=== PATIENT | female | born 1965 | race African-American/Black ===

== ENCOUNTER 2019-05-22 09:06 | Inpatient (IN) | payer BC ==
[2019-05-22] MEDS ORDERED: SODIUM CHLORIDE 0.9% P/F 10 ML VIAL IJ ONE (09:43)
[2019-05-22] MEDS ORDERED: BUPIVACAINE LIPOSOME/PF (EXPAREL) 266 MG/20 ML VIAL ONE (09:43)
[2019-05-22] MEDS ORDERED: MIDAZOLAM HCL 2 MG/2 ML SINGLE DOSE VIAL ONE ×5 (09:43→13:42)
[2019-05-22] MEDS ORDERED: CEFAZOLIN 2 GM in DEXTROSE 5%-WATER - 100 ML IVPB ONE (10:30)
[2019-05-22] MEDS ORDERED: ceFAZolin SODIUM 1 GM VIAL ONE ×2 (11:20→14:00)
[2019-05-22] MEDS ORDERED: TRANEXAMIC ACID 1000 MG/10 ML VIAL ONE (11:20)
[2019-05-22] MEDS ORDERED: ePHEDrine SULFATE 50 MG/1 ML AMPULE ONE (11:24)
[2019-05-22] MEDS ORDERED: VANCOMYCIN 1,000 MG VIAL (RESTRICTED TO ID ONLY) ONE (11:39)
[2019-05-22] MEDS ORDERED: oxyCODONE HCL 5 MG TABLET PO PRN (11:56)
[2019-05-22] MEDS ORDERED: ONDANSETRON 4 MG/2 ML VIAL IVPUSH PRN ×2 (11:56→13:39)
[2019-05-22] MEDS ORDERED: LACTATED RINGERS SOLUTION 1,000 ML IV SCH ×2 (12:00→13:45)
[2019-05-22] MEDS ORDERED: BENZOIN/ALOE VERA/STORAX/TOLU 58 ML BOTTLE ONE (13:17)
[2019-05-22] MEDS ORDERED: MAGNESIUM HYDROX 2400MG/30ML ORAL SUSPENSION 30 ML CUP PO PRN (13:39)
[2019-05-22] MEDS ORDERED: MAG HYDROX/AL HYDROX/SIMETH 30 ML UNIT-DOSE CUP PO PRN (13:39)
[2019-05-22] MEDS ORDERED: PATIENT'S OWN MEDICATION (NON-FORMULARY) (Omeprazole [Omeprazole] 20 MG) PO SCH (13:45)
--- NOTE | 2019-05-22 14:28 | PN ---
Progress Note (short form) - Note Progress Note: 53F s/p LEFT total knee replacement POD #0. -Pain control: per anaesthesia team. -DVT PPx: -Chemical: ASA 81mg PO BID x 6 weeks. -Mechanical: EDWINA's, SCD's. -Incentive spirometry q15 min. -PT/OT/Rehab, OOB. -WBAT LLE. -Post-op Ancef x 3 doses. -f/u post-op TOV: 8 hours max. -f/u AM labs. -f/u drain output. -Diet as tolerated. -Care per medical hospitalist team. -Discharge planning: f/u [facility] [place] [facility] 7-10 days; call for appointment . -Will follow. Avelino Willard MD (Orthopaedic Surgery).
--- NOTE | 2019-05-22 14:32 | OP ---
Operative Note - Note: Operative Date: 05/22/19 Pre-Operative Diagnosis: Left knee DJD Operation: Left total knee replacement Findings: Tri-Compartment Osteoarthritis Tourniqet Pressure: 350mmHg Tourniquet Time: 128 minutes Implants: [employer]user Triathlon. Femur - 4. Tibia - 5. Poly - 9mm, PS. Patella - 27mm, symmetric Post-Operative Diagnosis: Same as Pre-op Surgeon: Avelino Willard Gambling Cashier: Cali Willard Anesthesiologist/RESIDENTIAL SUBSTANCE ABUSE COUNSELOR: Alee Link Anesthesia: General Estimated Blood Loss (mls): 0 Drains & Tubes with Location: 1 x deep HemoVac Fluid Volume Replaced (mls): 1,200 (Crystalloid) Operative Report Dictated: Yes
[2019-05-22] MEDS ORDERED: ACETAMINOPHEN 325 MG TABLET (FP) ONE (14:38)
[2019-05-22] MEDS: ACETAMINOPHEN 325 MG TABLET (FP) PO SCH ×2 (14:45→21:40)
--- NOTE | 2019-05-22 19:24 | HP ---
HISTORY OF PRESENT ILLNESS: 53 year-old female with a PMH significant for HTN, GERD, and DJD s/p left total knee replacement with Dr. Cali Willard on 05/22/19. PAST MEDICAL HISTORY: Hypertension GERD PAST SURGICAL HISTORY: Left breast biopsy Salpingectomy s/p ectopic Bilateral knee arthroscopy (2015) Social History: Smoking: never Alcohol: social Drugs: no Allergies No Known Allergies Allergy (Verified 05/13/19 11:42) HOME MEDICATIONS: Home Medications Medication Instructions Recorded Losartan/Hydrochlorothiazide 1 each PO DAILY 05/13/19 [Hyzaar 100-25 Tablet] Naproxen Sodium [Aleve] 220 mg PO PRN 05/13/19 Omeprazole 20 mg PO PRN 05/13/19 REVIEW OF SYSTEMS CONSTITUTIONAL: Absent: fever, chills, diaphoresis, generalized weakness, malaise, loss of appetite, weight change HEENT: Absent: rhinorrhea, nasal congestion, throat pain, throat swelling, difficulty swallowing, mouth swelling, ear pain, eye pain, visual changes CARDIOVASCULAR: Absent: chest pain, syncope, palpitations, irregular heart rate, lightheadedness , peripheral edema RESPIRATORY: Absent: cough, shortness of breath, dyspnea with exertion, orthopnea, wheezing, stridor, hemoptysis GASTROINTESTINAL: Absent: abdominal pain, abdominal distension, nausea, vomiting, diarrhea, constipation, melena, hematochezia GENITOURINARY: Absent: dysuria, frequency, urgency, hesitancy, hematuria, flank pain, genital pain MUSCULOSKELETAL: Absent: myalgia, arthralgia, joint swelling, back pain, neck pain SKIN: Absent: rash, itching, pallor HEMATOLOGIC/IMMUNOLOGIC: Absent: easy bleeding, easy bruising, lymphadenopathy, frequent infections ENDOCRINE: Absent: unexplained weight gain, unexplained weight loss, heat intolerance, cold intolerance NEUROLOGIC: Absent: headache, focal weakness or paresthesias, dizziness, unsteady gait, seizure, mental status changes, bladder or bowel incontinence PSYCHIATRIC: Absent: anxiety, depression, suicidal or homicidal ideation, hallucinations. PHYSICAL EXAMINATION Vital Signs - 24 hr 05/22/19 05/22/19 05/22/19 09:49 14:15 14:20 Temperature 98.4 F 97.4 F L Pulse Rate 70 74 65 Respiratory 18 18 17 Rate Blood Pressure 122/74 107/57 L 105/57 L O2 Sat by Pulse 99 99 99 Oximetry (%) 05/22/19 05/22/19 05/22/19 14:25 14:30 14:45 Temperature Pulse Rate 68 68 62 Respiratory 18 18 14 Rate Blood Pressure 121/61 121/61 127/64 O2 Sat by Pulse 99 99 99 Oximetry (%) 05/22/19 05/22/19 05/22/19 14:57 15:00 15:30 Temperature 97.3 F L Pulse Rate 62 62 65 Respiratory 14 14 18 Rate Blood Pressure 122/76 122/76 102/58 L O2 Sat by Pulse 99 99 100 Oximetry (%) GENERAL: Awake, alert, and fully oriented, in no acute distress. HEAD: Normal with no signs of trauma. EYES: Pupils equal, round and reactive to light, extraocular movements intact, sclera anicteric, conjunctiva clear. No lid lag. EARS, NOSE, THROAT: Ears normal, nares patent, oropharynx clear without exudates. Moist mucous membranes. NECK: Normal range of motion, supple without lymphadenopathy, JVD, or masses. LUNGS: Breath sounds equal, clear to auscultation bilaterally. No wheezes, and no crackles. No accessory muscle use. HEART: Regular rate and rhythm, normal S1 and S2 without murmur, rub or gallop. ABDOMEN: Soft, nontender, not distended, normoactive bowel sounds, no guarding, no rebound, no masses. No hepatomegaly or splenomegaly. MUSCULOSKELETAL: Normal range of motion at all joints. No bony deformities or tenderness. No CVA tenderness. UPPER EXTREMITIES: 2+ pulses, warm, well-perfused. No cyanosis. No clubbing. No peripheral edema. LEFT LOWER EXTREMITY: leg immobilzed, surgical wrappings c/d/i, Hemovac drain; flex/extend toes, sensory intact NEUROLOGICAL: Cranial nerves II-XII intact. Normal speech. Pre op BUN 18 Cr 0.71 Hgb 12.9 Intra op Ancef 2g x 2; Vanc 1g EBL 150mL LR 1200mL ASSESSMENT/PLAN: 53 year-old female with a PMH significant for HTN, GERD, and DJD s/p left total knee replacement with Dr. Cali Willard on 05/22/19. Left total knee replacement --POD #0 --perioperative antibiotics per surgery --pain management per surgery --ASA 81mg BID --protonix --bowel regimen --incentive spirometry --Hemovac drain, monitor output --has voided --tolerating food FEN Fluids: LR@125mL/hr Electrolytes: replete as indicated Nutrition: regular diet DVT prophylaxis: OOB, ambulation, SCDs, TEDs, ASA 81mg BID Physical therapy Dispo: continues to require inpatient care. Full code. Visit type - Emergency Visit Emergency Visit: No - New Patient This patient is new to me today: Yes Date on this admission: 05/23/19 - Critical Care Critical Care patient: No
[2019-05-22] MEDS: oxyCODONE HCL 5 MG TABLET PO PRN (19:35)
[2019-05-22] MEDS: CEFAZOLIN 2 GM/D5W 2 GM/50 ML ML IVPB SCH (19:56)
[2019-05-22] MEDS: SENNOSIDES/DOCUSATE COMBO (SENNA PLUS) TABLET (UD) PO SCH (21:40)
[2019-05-22] MEDS: oxyCODONE HCL 10 MG SUSTAINED ACTING TABLET PO SCH (21:40)
[2019-05-22] MEDS: ASPIRIN 81 MG CHEWABLE TABLETS PO SCH (21:40)
[2019-05-23] MEDS: oxyCODONE HCL 5 MG TABLET PO PRN ×5 (01:26→15:02)
[2019-05-23] MEDS: CEFAZOLIN 2 GM/D5W 2 GM/50 ML ML IVPB SCH ×2 (01:26→07:38)
[2019-05-23] MEDS: ACETAMINOPHEN 325 MG TABLET (FP) PO SCH ×4 (03:04→21:11)
[2019-05-23 07:29] LABS: HEMATOCRIT 39.3 % (32.4-45.2); HEMOGLOBIN 12.6 GM/dl (10.7-15.3); MCH 24.8 pg (25.7-33.7); MCHC 32.1 g/dl (32.0-36.0); MEAN CELL VOLUME 77.5 fl (80-96); MEAN PLT VOLUME 9.8 fl (7.5-11.1); PLATELET COUNT 334 K/MM3 (134-434); RBC 5.07 M/mm3 (3.60-5.2); RDW 14.2 % (11.6-15.6); WHITE BLOOD COUNT 10.6 K/mm3 (4.0-10.8)
--- NOTE | 2019-05-23 07:32 | PN ---
Progress Note (short form) - Note Progress Note: ORTHOPAEDIC SURGERY POD #1 s/p Left TKR No acute events per RN notes. Alert. C/o incisional pain. Adequately managed with medications ordered. Ambulating with walker assist back from bathroom. Voiding spontaneously. Denies n/v/f/c, CP, palpitations, SOB or MEJIA Last Vital Signs Temp Pulse Resp BP Pulse Ox 98.4 F 97 H 18 126/70 97 05/23/19 06:00 05/23/19 06:00 05/23/19 06:00 05/23/19 06:00 05/23/19 06:00 Drain 05/23/19 05/23/19 01:27 06:00 Hemovac 150 160 PE Gen: nad LE: RLE unremarkable. LLE dressing c/d/i. Drain on self-suction (sanguinous). Knee Flexion/extension to about 60 degrees. Foot warm. Plantar/dorsi flexion intact. Palpable DP/PT. SCDs/TEDs bilat. LE compartments soft bilat. Problem List - Problems (1) Status post total left knee replacement using cement Assessment/Plan: 53 yo female POD #1 s/p Left TKR Pain control -DVT PPx: ASA 81 mg PO BID x 6 weeks & TEDs/SCDs Incentive Spirometer PT/OT/REHAB WBAT LLE Monitor/record drain output q shift (most likely will dc drain on rounds in AM) f/u CBC, BMP Cont care per medical hospitalist team Towel roll under heels DC planning in AM Above plan discussed with Dr. Avelino Willard and agree Code(s): Z96.652 - PRESENCE OF LEFT ARTIFICIAL KNEE JOINT (2) Osteoarthritis of left knee Code(s): M17.12 - UNILATERAL PRIMARY OSTEOARTHRITIS, LEFT KNEE
[2019-05-23 07:34] LABS: CALCIUM 8.7 mg/dl (8.5-10); CREATININE 0.7 mg/dl (0.55-1.3); POTASSIUM 3.7 mmol/L (3.5-5.1)
--- NOTE | 2019-05-23 08:14 | PN ---
Physical Exam: SUBJECTIVE: Patient seen and examined OBJECTIVE: Vital Signs Period Temp Pulse Resp BP Sys/Cramer Pulse Ox Last 24 Hr 97.3 F-98.4 F 62-97 14-18 102-147/57-78 97-100 GENERAL: Awake, alert, and fully oriented, in no acute distress. LUNGS: Breath sounds equal, clear to auscultation bilaterally. No wheezes, and no crackles. No accessory muscle use. HEART: Regular rate and rhythm, normal S1 and S2 UPPER EXTREMITIES: 2+ pulses, warm, well-perfused. No cyanosis. No clubbing. No peripheral edema. LEFT LOWER EXTREMITY: leg immobilzed, surgical wrappings c/d/i, Hemovac drain; flex/extend toes, sensory intact NEUROLOGICAL: Cranial nerves II-XII intact. Normal speech. Laboratory Results - last 24 hr 05/23/19 05/23/19 06:52 06:52 WBC 10.6 RBC 5.07 Hgb 12.6 Hct 39.3 MCV 77.5 L MCH 24.8 L MCHC 32.1 RDW 14.2 Plt Count 334 MPV 9.8 Sodium 133 L Potassium 3.7 Chloride 99 Carbon Dioxide 24 Anion Gap 10 BUN 17.0 Creatinine 0.7 Est GFR (CKD-EPI)AfAm 114.65 Est GFR (CKD-EPI)NonAf 98.92 Random Glucose 130 H Calcium 8.7 Active Medications Generic Name Dose Route Start Last Admin Trade Name Freq PRN Reason Stop Dose Admin Acetaminophen 650 mg 05/22/19 15:00 05/23/19 03:04 Tylenol - PO 05/25/19 14:59 Not Given Q6H BERTA Al Hydroxide/Mg Hydroxide 30 ml 05/22/19 13:39 Mylanta Oral Suspension - PO Q4H PRN DYSPEPSIA Aspirin 81 mg 05/22/19 22:00 05/22/19 21:40 Asa - PO 81 mg BID BERTA Administration HCTZ/Losartan Potassium 2 tab 05/23/19 10:00 Hyzaar - PO DAILY BERTA Lactated Ringer's 1,000 mls @ 125 mls/hr 05/22/19 12:00 05/22/19 15:00 Lactated Ringers Solution IV 0 mls ASDIR BERTA Administration Cefazolin Sodium/Dextrose 2 gm in 50 mls @ 100 mls/hr 05/22/19 20:00 07:38 Ancef 2 Gm Premixed Ivpb - IVPB 05/23/19 08:29 100 mls/hr Q6H BERTA Administration Magnesium Hydroxide 30 ml 05/22/19 13:39 Milk Of Magnesia - PO PRN PRN CONSTIPATION Multivitamins/Minerals/Vitamin C 1 tab 05/23/19 10:00 Tab-A-Vit - PO DAILY BERTA Ondansetron HCl 4 mg 05/22/19 13:39 Zofran Injection IVPUSH Q6H PRN NAUSEA Oxycodone HCl 5 mg 05/22/19 11:56 Roxicodone - PO Q4H PRN PAIN LEVEL 1-5 Oxycodone HCl 10 mg 05/22/19 12:00 05/23/19 05:59 Roxicodone - PO 10 mg Q3H PRN Administration PAIN LEVEL 6-10 Oxycodone HCl 10 mg 05/22/19 22:00 05/22/19 21:40 Oxycontin - PO 05/25/19 12:00 10 mg BID BERTA Administration Pantoprazole Sodium 40 mg 05/23/19 10:00 Protonix - PO DAILY BERTA Senna/Docusate Sodium 2 tablet 05/22/19 22:00 05/22/19 21:40 Pericolace - PO 2 tablet BID BERTA Administration Pre op BUN 18 Cr 0.71 Hgb 12.9 Intra op Ancef 2g x 2; Vanc 1g EBL 150mL LR 1200mL ASSESSMENT/PLAN: 53 year-old female with a PMH significant for HTN, GERD, and DJD s/p left total knee replacement with Dr. Cali Willard on 05/22/19. Left total knee replacement --POD #1 --perioperative antibiotics complete --pain management per surgery --ASA 81mg BID --protonix --bowel regimen --incentive spirometry --Hemovac drain, monitor output --has voided --tolerating food Hypertension --continue lisinopril/HCTZ FEN Fluids: PO intake adequate Electrolytes: replete as indicated Nutrition: regular diet DVT prophylaxis: OOB, ambulation, SCDs, TEDs, ASA 81mg BID Physical therapy Dispo: continues to require inpatient care. Full code. Visit type - Emergency Visit Emergency Visit: No - New Patient This patient is new to me today: No - Critical Care Critical Care patient: No
[2019-05-23] MEDS ORDERED: PATIENT'S OWN MEDICATION (NON-FORMULARY) (Losartan/Hydrochlorothiazide [Hyzaar 100-25 Tabl PO SCH (10:00)
[2019-05-23] MEDS: LOSARTAN 50MG/HCTZ 12.5MG 1 TAB (FP) PO SCH (10:00)
[2019-05-23] MEDS: MULTIVITAMINS (DAILY MVI) TABLET (FP) PO SCH (10:01)
[2019-05-23] MEDS: PANTOPRAZOLE 40 MG TABLET PO SCH (10:01)
[2019-05-23] MEDS: SENNOSIDES/DOCUSATE COMBO (SENNA PLUS) TABLET (UD) PO SCH ×2 (10:01→21:11)
[2019-05-23] MEDS: ASPIRIN 81 MG CHEWABLE TABLETS PO SCH ×2 (10:15→21:11)
[2019-05-23] MEDS: oxyCODONE HCL 10 MG SUSTAINED ACTING TABLET PO SCH ×2 (11:00→21:10)
--- NOTE | 2019-05-23 11:06 | PN ---
Progress Note, Physician Chief Complaint: s/p left tka under spinal anesthesia History of Present Illness: post op day one with peripheral nerve block for pain control - Current Medication List Current Medications: Active Medications Acetaminophen (Tylenol -) 650 mg PO Q6H [facility] Stop: 05/25/19 14:59 Last Admin: 05/23/19 08:29 Dose: 650 mg Al Hydroxide/Mg Hydroxide (Mylanta Oral Suspension -) 30 ml PO Q4H PRN PRN Reason: DYSPEPSIA Aspirin (Asa -) 81 mg PO BID [facility] Last Admin: 05/23/19 10:15 Dose: 81 mg HCTZ/Losartan Potassium (Hyzaar -) 2 tab PO DAILY [facility] Last Admin: 05/23/19 10:00 Dose: 2 tab Lactated Ringer's (Lactated Ringers Solution) 1,000 mls @ 125 mls/hr IV ASDIR [facility] Last Admin: 05/22/19 15:00 Dose: 0 mls Magnesium Hydroxide (Milk Of Magnesia -) 30 ml PO PRN PRN PRN Reason: CONSTIPATION Multivitamins/Minerals/Vitamin C (Tab-A-Vit -) 1 tab PO DAILY [facility] Last Admin: 05/23/19 10:01 Dose: 1 tab Ondansetron HCl (Zofran Injection) 4 mg IVPUSH Q6H PRN PRN Reason: NAUSEA Oxycodone HCl (Roxicodone -) 5 mg PO Q4H PRN PRN Reason: PAIN LEVEL 1-5 Oxycodone HCl (Roxicodone -) 10 mg PO Q3H PRN PRN Reason: PAIN LEVEL 6-10 Last Admin: 05/23/19 08:50 Dose: 10 mg Oxycodone HCl (Oxycontin -) 10 mg PO BID [facility] Stop: 05/25/19 12:00 Last Admin: 05/23/19 11:00 Dose: 10 mg Pantoprazole Sodium (Protonix -) 40 mg PO DAILY [facility] Last Admin: 05/23/19 10:01 Dose: 40 mg Senna/Docusate Sodium (Pericolace -) 2 tablet PO BID [facility] Last Admin: 05/23/19 10:01 Dose: 2 tablet - Objective Vital Signs: Vital Signs Temperature 98.0 F 05/23/19 10:00 Pulse Rate 90 05/23/19 10:00 Respiratory Rate 18 05/23/19 10:00 Blood Pressure 130/77 05/23/19 10:00 O2 Sat by Pulse Oximetry (%) 97 05/23/19 06:00 Constitutional: Yes: Well Nourished Cardiovascular: Yes: WNL Respiratory: Yes: WNL Gastrointestinal: Yes: WNL Labs: CBC, BMP 05/23/19 06:52 05/23/19 06:52 Assessment/Plan pain controlled, no adverse anesthetic complications, no nausea or vomiting, dept of anesthesiology will sign off care at this time
--- NOTE | 2019-05-23 13:36 | OP ---
Date of Operation: 05/22/2018 Pre-Operative Diagnosis: Osteoarthritis left knee. Post-Operative Diagnosis: Osteoarthritis left knee. Procedure Performed:Left total knee replacement. (24428) Surgeon: Avelino Willard M.D. Associate Professor Of Psychology: Cali Willard M.D. Anesthesia: Spinal, sedation, adductor canal block. Position: Supine Incision: Midline Specimens Removed: Bones, soft tissue. Estimated Blood Loss: 0 mL. Intravenous Fluid: 1.2L crystalloid. Specimens: None. Drains: 1 x deep HemoVac. Complications: None. Urine Output: None. Bacteriology: None. Transfusions: None. Closure: No. 1 and 2-0 Vicryl, 3-0 Biosyn absorbable sutures. Tourniquet Pressure: 350 mmHg. Tourniquet Time: 128 minutes. INDICATIONS: The patient was indicated for a left total hip replacement in order to facilitate improved motion and mobilization, and to prevent the complications associated with a sedentary lifestyle. The patient was identified in the holding area by her armband. A long discussion was held with the patient in the presence of her family regarding the risks, benefits and alternatives of the above-named procedure. Risks include but are not limited to: pain, bleeding, infection, damage to surrounding structures (including nerves, blood vessels, skin, ligaments, tendons and bone), wound complications, failure of hardware/implants/reduction, need for further surgery, blood clots, myocardial infarction, pulmonary embolism , cerebrovascular insult, anesthesia complications, compartment syndrome, limb loss, limp, loss of function, and . Benefits as mentioned above. Alternatives include no surgery. All questions were answered. The patient and her family understood and agreed to the procedure. Informed consent was obtained, witnessed and verified by hospital nursing staff. The patients correct operative limb - that is the left lower extremity - was marked. The patient was then seen by the anesthesia and nursing staff. In the preoperative holding area, the patient then received a lower extremity adductor canal nerve block on the operative limb. The patient was taken to the operating room by the anesthesia and nursing staff. PROCEDURE: The patient was brought into the operating room and transferred to the OR table , and secured with a safety strap. Consent and the operative site were again verified with the patient, the nursing team, the surgical team, and the anesthesiology team. Anesthesia, IV antibiotics, and TXA were then administered without complication. A time out was done, led by me the attending surgeon. The patient was positioned with all bony prominences well padded, and a tourniquet was placed proximally on the thigh of the operative limb and set to 350mmHg. The operative limb was prepped in standard sterile fashion using betadine prep & scrub, wiped off with alcohol, DuraPrep applied, and then free draped. A time-out was again done. The limb was then exsanguinated using elevation and an Esmarch. The tourniquet was inflated, and the case began. A midline longitudinal incision was made over the operative knee followed by a subvastus exposure. The infrapatellar fat pad was excised. A peripatellar neurectomy was performed using electrocautery. The patella was everted, and a free-hand cut was made using an oscillating saw blade to facilitate patellar resurfacing. With the intention of implanting a 27mm, symmetric patellar button, a drill guide was utilized to ream 3 drill holes into the cut surface of the patella. The knee was then flexed to 90 degrees and the anterior cruciate ligament (ACL) and posterior cruciate ligament (PCL) were transected using electrocautery. Throughout the case, sharp and blunt Hohmann retractors were used to provide full exposure of the knee, and also to protect the collateral ligaments, the patellar ligament, the quadriceps mechanism, and other soft tissue structures. Next, attention was turned to the proximal tibia. The tibia was subluxed anteriorly and the extra-medullary jig was assembled and placed. With alignment verified, the tibial cutting block was pinned into position and the proximal tibial cut was made using an oscillating saw. The bone cut was freed of all soft tissue attachments using electrocautery. Next, attention was turned to the distal femur. An opening reamer was used to access the medullary canal of the distal femur. This was approximately 1cm anterior to the intercondylar notch and centered over the lateral aspect of the medial femoral condyle. The intra-medullary alignment jig was then inserted, and the distal femoral cutting block was pinned into position. The distal femoral cut was then made using an oscillating saw. Rotation of the distal femoral sizing block was dialed in after referencing [place]'s line, the trans-epicondylar axis, and the posterior condylar axis. The size of the distal femur was measured and a sized 4-in-1 distal femoral cutting block was pinned into position. The anterior, anterior chamfer, posterior, and posterior chamfer cuts were then made using an oscillating saw. All bone cuts were removed. With the knee in full extension, laminar spreaders were used to facilitate excision of the medial and lateral menisci using electrocautery. With the knee in full extension and gentle traction applied to the ankle, a rectangular box could be visualized where the bone cuts had been made. With gentle impaction of the proximal tibia into the distal femur, excellent limb alignment was confirmed. A spacer block was then used to confirm symmetric space/gap balance in both full extension and in 90 degrees of flexion of the knee. The notch cutting block was pinned into place over the distal femur and the notch cuts were made using a chisel and an oscillating saw. The bone cut and soft tissue attachments were excised using electrocautery. The tibial preparation plate was then pinned into place, the trial femoral component was positioned, and an appropriately sized trial polyethylene liner was inserted. The knee was then taken through a full range of motion, demonstrating excellent stability and range of motion in the coronal, sagittal, and axial planes from 0 to 130 degrees of flexion. At 90 degrees of flexion, 2 lug holes were drilled via the femoral trial component into the distal femoral bone bed. The femoral trial component and polyethylene liner were then removed, and the proximal tibial preparation was completed using a drill guide, drill, and keel punch. All tibial trial components were then removed. All cut bone surfaces, soft tissues, and remaining surgically exposed structures were then thoroughly irrigated using pulse lavage. The cut bone surfaces were dried, and the interstices of the bone bed were free of blood, water, and lipid content. Final components were implanted using low viscosity cement mixed in a vacuum. Cementation was performed using a pressurized gun. The trial polyethylene liner was then inserted. The knee was then placed in full extension while the cement hardened. All extraneous cement was removed. Once the cement had hardened, the knee was taken through a full range of motion and alignment and stability in the coronal, sagittal, and rotation planes in full extension and at 90 degrees of flexion were satisfactory. Passive range of motion was demonstrated from 0 to 130 degrees of knee flexion. The knee was thoroughly irrigated once again after removal of the trial polyethylene insert. The final polyethylene liner was then inserted. Once again, the knee was taken through a full range of motion and alignment and stability in the coronal, sagittal, and rotation planes in full extension and at 90 degrees of flexion were satisfactory. The leg was straightened, and passive range of motion was demonstrated from 0 to 130 degrees of knee flexion. Final components utilized: [employer] Triathlon: Femur - size #4. Tibia - size #5. Polyethylene liner - 9mm, PS (posterior stabilized). Patella - 27mm, symmetric. A 1/8 HemoVac drain was placed to drain the subvastus space. The wounds were closed primarily using No. 1 Vicryl sutures, and the skin was eventually closed using 3-0 Biosyn in intracuticular running fashion. Next, the skin surface was cleaned using saline-soaked lap pads and then dried using dry lap pads. Benzoin and Steri-Strips as well as a JumpStart dressing were applied over the wounds, and Webril as well as Toribio wraps were placed from the foot all the way up to the thigh with a compressive, sterile dressing. Another 1g of Ancef and 1g TXA were administered intravenously. The tourniquet was then released at a final time of 128 minutes. The sponge and needle counts were correct at the end of the case, and I, the attending surgeon, was present and scrubbed throughout the case. AP & lateral x-rays taken in the operating room then confirmed satisfactory implant positioning, and limb alignment and with no evidence of subsidence, loosening, or gini-prosthetic fracture or unintentionally retained radio-opaque foreign bodies. The patient was then transferred to the hospital bed and then to the recovery room in stable condition having tolerated this procedure well. MD MANOHAR Sarkar/[id number] MTDD
[2019-05-23 16:14] VITALS: BMI 38.6
[2019-05-24] MEDS: ACETAMINOPHEN 325 MG TABLET (FP) PO SCH ×4 (03:30→21:39)
[2019-05-24] MEDS: oxyCODONE HCL 5 MG TABLET PO PRN ×4 (03:31→20:00)
[2019-05-24 08:08] LABS: HEMATOCRIT 34.6 % (32.4-45.2); HEMOGLOBIN 10.9 GM/dl (10.7-15.3); MCH 24.5 pg (25.7-33.7); MCHC 31.5 g/dl (32.0-36.0); MEAN CELL VOLUME 77.9 fl (80-96); MEAN PLT VOLUME 9.6 fl (7.5-11.1); PLATELET COUNT 289 K/MM3 (134-434); RBC 4.44 M/mm3 (3.60-5.2); RDW 14.5 % (11.6-15.6); WHITE BLOOD COUNT 9.7 K/mm3 (4.0-10.8)
--- NOTE | 2019-05-24 08:25 | PN ---
Progress Note (short form) - Note Progress Note: POD #2 Left TKA. Patient seen and examined at bedside. No acute events per RN notes.Alert. C/o incisional pain. Adequately managed with medications ordered. Ambulating with walker assist back from bathroom and Voiding spontaneously. Denies n/v/f/c, CP, palpitations, SOB or MEJIA Vital Signs Temp 98.8 F 05/24/19 06:00 Pulse 89 05/24/19 06:00 Resp 18 05/24/19 06:00 BP 115/52 L 05/24/19 06:00 Pulse Ox 93 L 05/24/19 06:00 Intake & Output 05/23/19 05/23/19 05/24/19 11:59 23:59 11:59 Intake Total 1475 800 350 Output Total 310 360 130 Balance 1165 440 220 Weight 269 lb 6.478 oz Intake: IV 1375 Lactated Ringers Solution 1375 1,000 ml @ 125 mls/hr IV ASDIR BERTA Rx#: [id number] IVPB 100 100 Oral 700 350 Output: Drainage 310 360 130 Left Knee 310 360 130 Other: Voiding Method Toilet Toilet # Unmeasured Voids Void 1 1 2 Height 5 ft 10 in Body Mass Index (BMI) 38.6 Weight Measurement Method Standing Scale CBC, BMP 05/24/19 07:07 05/23/19 06:52 PE: Gen: A&Ox3, NAD LE: LLE dressing c/d/i. Drain on self-suction (sanguinous) put out 130cc/12 hours. Knee ROM form 0-90 degrees. B/L LE compartments soft, supple and non- tender with +2 DP pulses. 5/5 on B/L Plantar/dorsi flexion Palpable Problem List - Problems (1) Osteoarthritis of left knee Assessment/Plan: 53 yo female POD #2 s/p Left TKR Pain control -DVT PPx: ASA 81 mg PO BID x 6 weeks & TEDs/SCDs Incentive Spirometer PT/OT/REHAB WBAT LLE bowel regimen Monitor/record drain output q shift (most likely will dc drain later this afternoon) Cont care per medical hospitalist team Towel roll under heels DC planning for home after drain removed Above plan discussed with Dr. Avelino Willard and agree Code(s): M17.12 - UNILATERAL PRIMARY OSTEOARTHRITIS, LEFT KNEE (2) Status post total left knee replacement using cement Code(s): Z96.652 - PRESENCE OF LEFT ARTIFICIAL KNEE JOINT
[2019-05-24] MEDS: SENNOSIDES/DOCUSATE COMBO (SENNA PLUS) TABLET (UD) PO SCH ×2 (09:23→21:40)
[2019-05-24] MEDS: oxyCODONE HCL 10 MG SUSTAINED ACTING TABLET PO SCH ×2 (09:24→21:40)
[2019-05-24] MEDS: ASPIRIN 81 MG CHEWABLE TABLETS PO SCH ×2 (09:26→21:40)
[2019-05-24] MEDS: LOSARTAN 50MG/HCTZ 12.5MG 1 TAB (FP) PO SCH (09:27)
[2019-05-24] MEDS: MULTIVITAMINS (DAILY MVI) TABLET (FP) PO SCH (09:27)
[2019-05-24] MEDS: PANTOPRAZOLE 40 MG TABLET PO SCH (09:27)
[2019-05-24] MEDS ORDERED: BISACODYL 10 MG SUPP.RECT RC PRN (10:14)
--- NOTE | 2019-05-24 10:25 | PN ---
Progress Note, Physician History of Present Illness: Patient seen and examined at bedside with present. She denies nausea vomiting fever chills chest pain SOB urinary symptoms diarrhea or any other symptoms. She endorses constipation and wants to have a BM. On a bowel regimen. Hb 12.6 yesterday to 10.9 today. Tolerating diet. Still has drain in place at surgical site with sanguineous output. Observed patient ambulating with walker - Current Medication List Current Medications: Active Medications Acetaminophen (Tylenol -) 650 mg PO Q6H [facility] Stop: 05/25/19 14:59 Last Admin: 05/24/19 09:26 Dose: 650 mg Al Hydroxide/Mg Hydroxide (Mylanta Oral Suspension -) 30 ml PO Q4H PRN PRN Reason: DYSPEPSIA Aspirin (Asa -) 81 mg PO BID [facility] Last Admin: 05/24/19 09:26 Dose: 81 mg HCTZ/Losartan Potassium (Hyzaar -) 2 tab PO DAILY [facility] Last Admin: 05/24/19 09:27 Dose: 2 tab Magnesium Hydroxide (Milk Of Magnesia -) 30 ml PO PRN PRN PRN Reason: CONSTIPATION Multivitamins/Minerals/Vitamin C (Tab-A-Vit -) 1 tab PO DAILY [facility] Last Admin: 05/24/19 09:27 Dose: 1 tab Ondansetron HCl (Zofran Injection) 4 mg IVPUSH Q6H PRN PRN Reason: NAUSEA Oxycodone HCl (Roxicodone -) 5 mg PO Q4H PRN PRN Reason: PAIN LEVEL 1-5 Oxycodone HCl (Roxicodone -) 10 mg PO Q3H PRN PRN Reason: PAIN LEVEL 6-10 Last Admin: 05/24/19 09:25 Dose: 10 mg Oxycodone HCl (Oxycontin -) 10 mg PO BID [facility] Stop: 05/25/19 12:00 Last Admin: 05/24/19 09:24 Dose: 10 mg Pantoprazole Sodium (Protonix -) 40 mg PO DAILY [facility] Last Admin: 05/24/19 09:27 Dose: 40 mg Senna/Docusate Sodium (Pericolace -) 2 tablet PO BID [facility] Last Admin: 05/24/19 09:23 Dose: 2 tablet - Objective Vital Signs: Vital Signs Temperature 98.8 F 05/24/19 06:00 Pulse Rate 89 05/24/19 06:00 Respiratory Rate 18 05/24/19 06:00 Blood Pressure 115/52 L 05/24/19 06:00 O2 Sat by Pulse Oximetry (%) 93 L 05/24/19 08:30 Constitutional: Yes: No Distress, Calm Eyes: Yes: Conjunctiva Clear HENT: Yes: Atraumatic Neck: Yes: Supple Cardiovascular: Yes: Regular Rate and Rhythm Respiratory: Yes: CTA Bilaterally Gastrointestinal: Yes: Soft, Abdomen, Obese Genitourinary: Yes: Other (no suprapubic tenderness) Edema: Yes Edema: LLE: Trace Labs: CBC, BMP 05/24/19 07:07 05/23/19 06:52 Impression/Plan Impression/Plan: 53 year-old female with a PMH significant for HTN, GERD, and DJD POD#2 s/p left total knee replacement. Dejenerative joint disease of knee POD#2 s/p Left total knee replacement continue aspirin 81mg po BID. Patient will need this for 6 weeks per Surgery pain control regimen adequate at this time monitor drain output-discussed with PA face to face if drain output slows down later today then drain can be pulled and patient can be discharged Hypertension well controlled continue lisinopril/HCTZ combination pill constipation: Continue current bowel regimen will add dulcolax po now will also add dulcolax suppository PRN Anemia in the setting of recent left knee replacement: acute blood loss anbemia vs dilutional stop IVF trend CBC FEN on lactated ringers so will discontinue DVT prophylaxis: OOB, ambulation, SCDs, TEDs, ASA 81mg BID Physical therapy BID anticipate discharge in next 24 hours Discussed plan of care with patient and at bedside. all questions answered and concerns addressed. Visit type - Emergency Visit Emergency Visit: No - New Patient This patient is new to me today: Yes Date on this admission: 05/24/19 - Critical Care Critical Care patient: No
[2019-05-24] MEDS ORDERED: BISACODYL 5 MG TABLET.DR (FP) PO ONE (10:30)
[2019-05-24] MEDS ORDERED: KETOROLAC TROMETHAMINE 30 MG/1 ML VIAL IVPUSH ONE (15:40)
--- NOTE | 2019-05-24 18:23 | PATH ---
Surgical Pathology Report Patient Name: TELLY AGUSTIN Med. Rec. #: [id number] /Age/Gender: 1965 (Age: 53) / F Account: [id number] Location: [facility] MED-SURG Taken: 05/22/2019 Received: 05/22/2019 Reported: 05/24/2019 Physicians: Avelino Willard M.D. Specimen(s) Received BONES LEFT KNEE Clinical History Left knee osteoarthritis Final Diagnosis LEFT KNEE BONES, RESECTION: DEGENERATIVE JOINT DISEASE, LEFT KNEE. Electronically Signed Nely Wiley M.D. Gross Description Received in formalin labeled "bones left knee," is a 13.0 x 11.0 x 2.0 cm aggregate of multiple irregular portions of bone and soft tissue. The tibial plateau measures 7.5 x 5.5 x 1.6 cm. There is a 1.7 cm greatest dimension area of eburnation present. The remaining articular surfaces are kohler-yellow and focally granular. The underlying trabecular bone is yellow and hard. [employer] sections are submitted in one cassette, following decalcification. 05/23/2019 [facility]05/23/2019
[2019-05-25] MEDS: oxyCODONE HCL 5 MG TABLET PO PRN ×3 (00:30→08:51)
[2019-05-25] MEDS: ACETAMINOPHEN 325 MG TABLET (FP) PO SCH ×2 (03:00→08:51)
[2019-05-25 07:02] VITALS: TEMP 97.9
[2019-05-25 08:49] LABS: BASO % 0.6 % (0-2.0); EOS % 2.5 % (0-4.5); HEMATOCRIT 35.4 % (32.4-45.2); HEMOGLOBIN 11.1 GM/dl (10.7-15.3); LYMPH % 15.4 % (8-40); MCH 24.3 pg (25.7-33.7); MCHC 31.3 g/dl (32.0-36.0); MEAN CELL VOLUME 77.5 fl (80-96); MEAN PLT VOLUME 9.7 fl (7.5-11.1); MONO % 6.9 % (3.8-10.2); NEUT % 74.6 % (42.8-82.8); PLATELET COUNT 303 K/MM3 (134-434); RBC 4.57 M/mm3 (3.60-5.2); RDW 14.6 % (11.6-15.6); WHITE BLOOD COUNT 9.7 K/mm3 (4.0-10.8)
--- NOTE | 2019-05-25 08:52 | DS ---
Physical Exam: SUBJECTIVE: Patient seen and examined at bedside. Left knee drainage significantly decreased. I called Dr. Cali Willard and he will come soon to pull drain so patient can be discharged. She denies nausea vomiting fever chills chest pain or SOB. Endorses pain at the left knee surgical site. OBJECTIVE: Vital Signs Period Temp Pulse Resp BP Sys/Cramer Pulse Ox Last 24 Hr 97.9 F-98.3 F 71-99 18-19 100-125/53-67 96-100 PHYSICAL EXAM Constitutional: Yes: No Distress, Calm Eyes: Yes: Conjunctiva Clear HENT: Yes: Atraumatic Neck: Yes: Supple Cardiovascular: Yes: Regular Rate and Rhythm Respiratory: Yes: CTA Bilaterally Gastrointestinal: Yes: Soft, Abdomen, Obese Genitourinary: Yes: Other (no suprapubic tenderness) MSK: Left knee dressing C/D/I. Drain in place with minimal bloody drainage Edema: Yes Edema: LLE: Trace LABS HOSPITAL COURSE: Date of Admission:05/23/19 Date of Discharge: 05/25/19 Minutes to complete discharge: 34 Discharge Summary Problems reviewed: Yes Reason For Visit: PRIMARY OSTEOARTHRITIS LEFT KNEE Current Active Problems Osteoarthritis of left knee (Acute) Status post total left knee replacement using cement (Acute) Hospital Course: 53F with history of HTN and left knee DJD POD #3 s/p left knee replacement. Patient's hospital course complicated by increased drain output which was bloody. It has now slowed down and Dr. Willard will pull the drain today and patient can be discharged. Will need aspirin 81mg po BID for 6 weeks for DVT PPx. Her CBC remained stable and she has been getting PT and tolerating it. Condition: Good - Instructions Diet, Activity, Other Instructions: Dr. Willard Discharge Instructions for Knee Replacement Post Operative Instructions Physical activity Physical Therapist will come to your home for the first 5 days. You will be set up with outpatient PT at your first post-operative visit. Use assistive devices for ambulation at all times. Weight bearing as tolerated on your surgical side. Do not put pillow under knee. May put pillow under heel. Wound care Leave your surgical dressing in place. Do not change the dressing until seen by your surgeon in the office. No baths or showers. Do not submerge your incision. Do not apply any ointments or lotions to your incision. Please call the office if your dressing is soiled/dirty or is falling off. Apply Graduated Compression Stockings (TEDS) to both lower extremities - remove daily for hygiene ONLY. Diet There are no dietary restrictions. Eat healthy, high-fiber foods. Drink 6 to 8 glasses of liquid each day. This will assist in keeping your bowels are regular. Pain management Any pain prescription medication ordered should be taken as prescribed for moderate to severe pain. Do not take additional Tylenol while taking Percocet. Take Aspirin 81 mg two times a day for a total of 6 weeks to prevent blood clots. Call Dr. Willard for any of the following: Severe pain not relieved by medication Fever of 101 or higher Excessive bleeding or drainage on dressing Inability to urinate If you experience chest pain or shortness of breath, please seek emergency care immediately. Please call the office at to confirm your post-op appointment for the week following surgery. Please also follow up with your primary care doctor for post hospitalization discharge follow up and continued preventative care. Disposition: HOME - Home Medications Comprehensive Discharge Medication List: Ambulatory Orders Losartan/Hydrochlorothiazide [Hyzaar 100-25 Tablet] 1 each PO DAILY 05/13/19 Oxycodone 5mg po q6h PRN pain 6-10 for 5 days disp #20 Tylenol 650mg po q6h PRN pain 1-5 Aspirin 81mg po BID for 6 weeks Omeprazole 20 mg PO PRN 05/13/19 Prescription Drug Monitoring Program (I-STOP) results: I-STOP reviewed and no issues identified (reference number [id number]) This patient is new to me today: No Emergency Visit: No Critical Care patient: No - Discharge Referral Referred to [facility] Med P.C.: No
[2019-05-25 08:55] VITALS: BP 107/60; PULSE 93
[2019-05-25] MEDS: SENNOSIDES/DOCUSATE COMBO (SENNA PLUS) TABLET (UD) PO SCH (09:32)
[2019-05-25] MEDS: MULTIVITAMINS (DAILY MVI) TABLET (FP) PO SCH (09:32)
[2019-05-25] MEDS: PANTOPRAZOLE 40 MG TABLET PO SCH (09:32)
[2019-05-25] MEDS: LOSARTAN 50MG/HCTZ 12.5MG 1 TAB (FP) PO SCH (09:33)
[2019-05-25] MEDS: oxyCODONE HCL 10 MG SUSTAINED ACTING TABLET PO SCH (09:33)
--- NOTE | 2019-05-25 10:03 | PN ---
Progress Note (short form) - Note Progress Note: POD# 3 Doing well No medical issues Wound Dry bandage Drain removed tis am No NVD No calf or subsartorial tenderness PLAN D/C today See in office Monday [phone] Ambulate and mobilize FWBAT VTE prophylaxis Baby Aspirin 81mg po BID 6 wks
[2019-05-25] MEDS: ASPIRIN 81 MG CHEWABLE TABLETS PO SCH (10:10)
== END 2019-05-25 12:41 | disposition home or self-care (01) | DRG 470 ==
LOC: SUATTDRO 09:06 → FASUSAT 09:06 → EDSTATUS 10:00 → FM/S 14:38 → FASUSAT 14:38 → FM/S 05-23 12:46
PROVIDERS: ADMIT Orthopaedic Surgery Adult Reconstructive Orthopaedic Surgery; ATTEND Internal Medicine
PROC: 0SRD0J9 Replacement of Left Knee Joint with Synthetic Substitute, Cemented, Open Approach (ICD-10-PCS; principal; 2019-05-22 11:54)
DX: M17.12 Unilateral primary osteoarthritis, left knee (principal); D62 Acute posthemorrhagic anemia; I10 Essential (primary) hypertension; K21.9 Gastro-esophageal reflux disease without esophagitis; K59.00 Constipation, unspecified
CPT/HCPCS: 36415; 73560-TC-LT-FY; 80048; 85025; 85027; 88304-TC; 88311-TC; 94760; 97116-GP; 97163-GP